=== PATIENT | female | born 1975 | race Two or more races ===

== ENCOUNTER 2018-04-03 19:10 | Emergency (ER) | payer OTHER ==
[2018-04-03] MEDS: HYDROcodone/APAP 5/325MG 1 TAB TABLET PO ×2 (21:57)
[2018-04-03] MEDS: LIDOCAINE WITH 8.4% SOD BICARB 3 ML DISP.SYRIN. INJ ×2 (22:01)
== END 2018-04-03 23:58 | disposition home or self-care (01) ==
LOC: ER 23:58
DX: S01.511A Laceration without foreign body of lip, initial encounter (principal); S09.90XA Unspecified injury of head, initial encounter; W22.8XXA Striking against or struck by other objects, initial encounter; Y93.89 Activity, other specified; Y99.8 Other external cause status; Y92.89 Other specified places as the place of occurrence of the external cause
CPT/HCPCS: 40650; 70450; 70486; 72125; 99284-25